=== PATIENT | female | born 2000 ===

== ENCOUNTER 2023-07-19 06:09 | Day surgery (SDC) | payer OTHER, SELFPAY ==
[2023-07-19] VITALS (9 sets, daily range): BP systolic 100–126; BP diastolic 69–79; BMI 24.1
[2023-07-19] MEDS: NORMOSOL-R 1000 IV (10:15)
[2023-07-19] MEDS: TRANSDERM-SCOP 1 PATCH TRANSDERM (10:16)
[2023-07-19] MEDS: DILAUDID 0.5 MG IV (13:10)
--- NOTE | 2023-07-19 14:19 | PTCARENOTE ---
Report given to Elzbieta CAMERON at 1420. Everything done except d/c instructions.
== END 2023-07-19 14:38 | disposition home or self-care (01) ==
LOC: SDS 06:09
PROVIDERS: ATTENDING PHYSICIAN Otolaryngology
DX: J35.2 Hypertrophy of adenoids (principal); J34.2 Deviated nasal septum; J34.3 Hypertrophy of nasal turbinates; J45.909 Unspecified asthma, uncomplicated
CPT/HCPCS: 30520; 42831; 30802; 88304